=== PATIENT | male | born 2000 | race American Indian/Alaskan Native ===

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

== ENCOUNTER 2018-06-16 20:43 | Emergency (ER) | payer MEDICAID, OTHER ==
[2018-06-16 21:26] VITALS: BP 140/70
[2018-06-16] MEDS ORDERED: IBUPROFEN PO ONE (21:28)
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
== END 2018-06-17 00:50 | disposition left against medical advice (07) ==
LOC: ED 20:43
DX: M54.2 Cervicalgia (principal); R07.9 Chest pain, unspecified; V49.59XA Passenger injured in collision with other motor vehicles in traffic accident, initial encounter; Y93.89 Activity, other specified; Y92.89 Other specified places as the place of occurrence of the external cause; Y99.8 Other external cause status
CPT/HCPCS: 71250; 72125

== ENCOUNTER 2018-11-18 20:52 | Emergency (ER) | payer SELFPAY ==
[2018-11-18] MEDS ORDERED: IBUPROFEN 800 MG TAB PO ONE (22:46)
[2018-11-18] MEDS ORDERED: oxyCODONE /ACETAMINOPHEN 5-325MG TAB PO ONE (22:46)
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
[2018-11-18] MEDS ORDERED: LIDOCAINE 1%/EPINEPHRINE 1:100,000 VIAL (20 ML) INFILTRATI NR (23:00)
[2018-11-18] MEDS ORDERED: SODIUM CHLORIDE IRRI 500 ML 500 ML IR ONE (23:36)
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
[2018-11-19 00:51] VITALS: BP 112/67
[2018-11-19] MEDS ORDERED: SODIUM CHLORIDE 0.9% IRR 1,000 ML BOTTLE IR ONE (03:07)
[2018-11-19] MEDS ORDERED: SODIUM CHLORIDE 0.9% IRR 500 ML BOTTLE IR ONE (04:00)
== END 2018-11-19 00:45 | disposition home or self-care (01) ==
LOC: ED 20:52
DX: S51.011A Laceration without foreign body of right elbow, initial encounter (principal); S00.83XA Contusion of other part of head, initial encounter; Z79.899 Other long term (current) drug therapy; Y09 Assault by unspecified means; Y93.89 Activity, other specified; Y92.89 Other specified places as the place of occurrence of the external cause; Y99.8 Other external cause status
CPT/HCPCS: 70450; 70486

== ENCOUNTER 2018-12-05 20:10 | Emergency (ER) | payer SELFPAY | END 2018-12-05 20:16 | disposition left against medical advice (07) | LOC: ED 20:10 | DX: Z48.02 Encounter for removal of sutures (principal); Z53.21 Procedure and treatment not carried out due to patient leaving prior to being seen by health care provider ==

== ENCOUNTER 2018-12-05 22:20 | Emergency (ER) | payer SELFPAY ==
[2018-12-06] MEDS ORDERED: ROCEPHIN IM ONE (00:56)
[2018-12-06] MEDS ORDERED: XYLOCAINE 1% MPF 5 mL ONE (00:57)
[2018-12-06] MEDS ORDERED: ROCEPHIN IM STA (01:01)
[2018-12-06] MEDS ORDERED: XYLOCAINE 1% MPF 5 mL INFILTRATI ONE (01:01)
--- NOTE | 2018-12-06 01:09 | Emergency Department Report ---
Suture/Staple Removal - [facility] Chief Complaint: Laceration/Recheck/Suture Stated Complaint: STITCH REMOVAL Time Seen by Provider: 12/06/18 00:26 When Sutures or Davida Placed: >14 Days Ago Wound Location: laceration to the posterior right arm with suture repair ED Review of Systems ROS: Stated complaint: STITCH REMOVAL Other details as noted in HPI Comment: All other systems reviewed and negative ED Past Medical Hx - Past Medical History Previous Medical History?: No - Surgical History Past Surgical History?: Yes - Social History Smoking Status: Never Smoker Substance Use Type: None - Medications Home Medications: Home Medications Medication Instructions Recorded Confirmed Last Taken Type HYDROcodone/APAP 7.5-325 [Fence 1 each PO Q6HR PRN #20 tablet 09/01/13 Unknown Rx 7.5-325 mg TAB] methOCARBAMOL [Robaxin] 750 mg PO Q8H PRN #21 tablet 09/01/13 Unknown Rx Ibuprofen [Motrin 600 MG tab] 600 mg PO Q8H PRN #30 tablet 10/30/16 Unknown Rx HYDROcodone/APAP 5-325 [Fence 1 each PO Q6HR PRN #14 tablet 11/19/18 Unknown Rx 5/325] Ibuprofen [Motrin 600 MG tab] 600 mg PO Q8H PRN #20 tablet 11/19/18 Unknown Rx Sulfamethoxazole/Trimethoprim 1 each PO BID #14 tablet 11/19/18 Unknown Rx [Bactrim DS TAB] Chlorhexidine Mouthwash [Peridex] 15 ml MM BID #473 bottle 12/06/18 Unknown Rx Mupirocin [Bactroban 2%] 15 applic TP TID #15 gm 12/06/18 Unknown Rx cephALEXin [Keflex] 500 mg PO Q6HR #40 capsule 12/06/18 Unknown Rx Suture Removal Exam - Exam General: Vital signs noted. No distress. Alert and acting appropriately. Wound: Yes Tenderness, Yes Drainage, Yes Pus, No Pathologic Erythema, No Wound Dehiscence Other Systems: All other systems reviewed and are unremarkable. Swelling to the right posterior triceps region around the wound with some erythema and some cloudy plus discharge. There is tender to touch pulses 2+ no cyanosis no clubbing. ED Course Vital Signs 12/05/18 23:15 Temperature 98.1 F Pulse Rate 69 Respiratory 16 Rate Blood Pressure 123/75 O2 Sat by Pulse 99 Oximetry ED Recheck MDM - Medical Decision Making Wound was cleaned and bandaged and dressed at the time of discharge Critical care attestation.: If time is entered above; I have spent that time in minutes in the direct care of this critically ill patient, excluding procedure time. ED Disposition Clinical Impression: Encounter for removal of sutures, Wound infection Disposition: TO HOME OR SELFCARE Is pt being admited?: No Does the pt Need Aspirin: No Condition: Stable Instructions: Acute Wound Care (ED), Wound Healing and Your Diet (ED), Wound Infection (ED) Referrals: [facility] [Provider Group] - 3-5 Days
[2018-12-06 01:36] VITALS: BP 123/70
== END 2018-12-06 01:35 | disposition home or self-care (01) ==
LOC: ED 22:20
DX: S41.111D Laceration without foreign body of right upper arm, subsequent encounter (principal); Z88.2 Allergy status to sulfonamides; Z79.899 Other long term (current) drug therapy; W26.8XXD Contact with other sharp object(s), not elsewhere classified, subsequent encounter
CPT/HCPCS: 96372; J0696

== ENCOUNTER 2019-04-30 10:03 | Emergency (ER) | payer SELFPAY | END 2019-04-30 14:10 | disposition left against medical advice (07) | LOC: ED 10:03 | DX: Z20.2 Contact with and (suspected) exposure to infections with a predominantly sexual mode of transmission (principal); Z53.21 Procedure and treatment not carried out due to patient leaving prior to being seen by health care provider ==

== ENCOUNTER 2019-05-01 12:58 | Emergency (ER) | payer SELFPAY ==
--- NOTE | 2019-05-01 13:55 | Emergency Department Report ---
Chief Complaint: Urogenital-Male Stated Complaint: UTI Time Seen by Provider: 05/01/19 13:51 - HPI History of Present Illness: This is a 19-year-old male nontoxic, well in appearance with no signs of distress presents to the ED for STD check. Patient stated he is asymptotic. Denies any penile discharge, testicular pain, or swelling. Patient denies any urinary symptoms. Patient denies any fever, chills, headache, nausea, vomiting, chest pain or shortness of breathe. denies any other symptoms or complaints. Denies any allergies or PMH. - Exam Physical Exam: no penile discharge, no urinary symptoms. no pain. normal physical exam. MSE screening note: Focused history and physical exam performed. Due to findings the following was ordered: ED Medical Decision Making - Medical Decision Making This is a 19-year-old male that presents with nonmedical emergency complaint. Patient is just requested for a STD test. Patient denies any symptoms. I gave patient many different referrals to follow-up with STD concerns. Patient was instructed to Follow-up with a primary care doctor in 3-5 days or if symptoms worsen and continue return to emergency room as soon as possible. At time of discharge, the patient does not seem toxic or ill in appearance. No acute signs of distress noted. Patient agrees to discharge treatment plan of care. No further questions noted by the patient. ED Disposition for MSE Clinical Impression: Possible exposure to STD Disposition: Z-07 MED SCREENING EXAM-LEFT Is pt being admited?: No Does the pt Need Aspirin: No Condition: Stable Instructions: Safe Sex (ED) Additional Instructions: Follow-up with a primary care doctor in 3-5 days or if symptoms worsen and continue return to emergency room as soon as possible. Referrals: DARLENE JOHNSON MD [Referring] - 3-5 Days MADISYN BASS MD [Staff Physician] - 3-5 Days [facility] [Outside] - 3-5 Days
[2019-05-01 13:59] VITALS: BP 120/80
== END 2019-05-01 14:00 | disposition left against medical advice (07) ==
LOC: ED 12:58
DX: Z20.2 Contact with and (suspected) exposure to infections with a predominantly sexual mode of transmission (principal)
CPT/HCPCS: 99281

== ENCOUNTER 2020-02-09 22:25 | Emergency (ER) | payer SELFPAY ==
[2020-02-09 22:59] VITALS: BP 141/93
== END 2020-02-09 23:35 | disposition left against medical advice (07) ==
LOC: ED 22:25
DX: K08.89 Other specified disorders of teeth and supporting structures (principal); Z53.21 Procedure and treatment not carried out due to patient leaving prior to being seen by health care provider